=== PATIENT | female | born 1980 | race Caucasian/White ===

== ENCOUNTER 2016-08-01 17:47 | Emergency (ER) | payer OTHER ==
[2016-08-01 18:31] VITALS: BP 109/78; PULSE 79; RESP 18; TEMP 97; O2SAT 100
== END 2016-08-01 19:21 | disposition home or self-care (01) ==
LOC: ED 17:47
DX: J02.0 Streptococcal pharyngitis (principal)
CPT/HCPCS: 87430; 99282

== ENCOUNTER 2017-03-29 16:25 | Emergency (ER) | payer OTHER ==
[2017-03-29 16:25] VITALS: O2SAT 100
[2017-03-29 16:40] VITALS: BP 121/81; PULSE 71; RESP 18; TEMP 97.3
== END 2017-03-29 17:51 | disposition home or self-care (01) | DRG 563 ==
LOC: ED 16:25
DX: S93.505A Unspecified sprain of left lesser toe(s), initial encounter (principal); W20.8XXA Other cause of strike by thrown, projected or falling object, initial encounter
CPT/HCPCS: 73630; 99282

== ENCOUNTER 2017-09-28 21:19 | Emergency (ER) | payer OTHER ==
[2017-09-28 21:45] VITALS: BP 119/77; PULSE 82; RESP 18; TEMP 98.2; O2SAT 98
== END 2017-09-28 23:07 | disposition home or self-care (01) | DRG 605 ==
LOC: ED 21:19
DX: S90.122A Contusion of left lesser toe(s) without damage to nail, initial encounter (principal); X58.XXXA Exposure to other specified factors, initial encounter
CPT/HCPCS: 73660; 99282; 99283

== ENCOUNTER 2018-04-05 22:39 | Emergency (ER) | payer OTHER ==
[2018-04-05] MEDS ORDERED: KETOROLAC TROMETHAMINE 30 MG/ML SOL IM ONE (23:02)
[2018-04-05] MEDS ORDERED: CEPHALEXIN 250 MG/5 ML BOTTLE PO ONE (23:02)
[2018-04-05 23:06] VITALS: TEMP 96.8
[2018-04-05] MEDS ORDERED: KETOROLAC TROMETHAMINE 30 MG/ML SOL ONE (23:07)
[2018-04-05] MEDS ORDERED: CEPHALEXIN 250 MG/5 ML BOTTLE ONE (23:07)
[2018-04-05 23:46] VITALS: BP 136/95; PULSE 99; RESP 20; O2SAT 72
== END 2018-04-05 23:25 | disposition home or self-care (01) | DRG 601 ==
LOC: ED 22:39
DX: N61.0 Mastitis without abscess (principal)
CPT/HCPCS: 96372; 99282; 99283; J1885; A9270-GY

== ENCOUNTER 2018-06-16 17:51 | Emergency (ER) | payer OTHER ==
[2018-06-16 19:05] VITALS: BP 115/71; PULSE 75; RESP 20; TEMP 98.1; O2SAT 100
[2018-06-16] MEDS ORDERED: CEFTRIAXONE 1 GM PDS IM ONE (20:41)
[2018-06-16] MEDS ORDERED: ACETAMINOPHEN 500 MG 500 MG TAB PO ONE (20:41)
[2018-06-16] MEDS ORDERED: ACETAMINOPHEN 500 MG 500 MG TAB ONE (20:46)
[2018-06-16] MEDS ORDERED: LIDOCAINE HCL 1% MPF 30 SOL ONE (20:46)
[2018-06-16] MEDS ORDERED: CEFTRIAXONE 1 GM PDS ONE (20:46)
== END 2018-06-16 21:15 | disposition home or self-care (01) | DRG 556 ==
LOC: ED 17:51
DX: M79.644 Pain in right finger(s) (principal); L03.011 Cellulitis of right finger
CPT/HCPCS: 73140; 96372; 99283; 99284; J0696; J2001